=== PATIENT | male | born 1960 | race Caucasian/White ===

== ENCOUNTER 2025-05-31 02:36 | Day surgery (SDC) | payer SELFPAY ==
[2025-05-06 11:59] VITALS: BMI 29.8
--- OUTSIDE RECORDS SUMMARY | 2025-05-31 02:38 | XMS_ITS | Clinical Summary ---
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 Gender Identity Not on file Sexual Orientation Not on file Plan of Treatment Health Maintenance Due Date Last Done Comments Hepatitis C Virus (HCV) Screening 1961 TdaP Immunization 1961 Colonoscopy 2006 Colorectal Cancer Screening 2006 Cologuard 2011 Immunochemical Fecal Occult Blood 2011 Pneumococcal Immunization (5 0+ years) (1 of 1 - PCV) 2011 Zoster Immunization (1 of 2) 2011 PSA Discussion 2016 Influenza Immunization (#1) 2024 SARS-COV-2 Immunization ( season) 2024 03/15/2021, 02/19/2021 Respiratory Syncytial Virus (RSV) Immunization (Adult) (1 - 1-dose 75+ series) 2036 Hepatitis B Immunization Aged Out No longer eligible based on patient's age to complete this topic Meningococcal Immunization (ACWY) Aged Out No longer eligible b ased on patient's age to complete this topic Pneumococcal Immunization Combined Aged Out No longer eligible b ased on patient's age to complete this topic Rotavirus Immunization Aged Out No lo nger eligible based on patient's age to complete this topic
--- OUTSIDE RECORDS SUMMARY | 2025-05-31 02:38 | XMS_ITS | Clinical Summary ---
Author Organization [facility] Address [address] [place] [address] Care Team Providers Care Saloon Keeper Name Role Phone Den Sauer MD Primary Care Provider [phone] Allergies Active Allergy Reactions Criticality Noted Date Comments Morphine Vomiting Low 05/28/2023 Medications ALPRAZolam (XANAX) 0.5 mg tablet Take 1 tablet (0.5 mg total) by mouth nightly as needed for anxiety or sleep Active dextroamphetami ne-amphetamine (ADDERALL) 15 mg tablet Take 2 tablets (30 mg total) by mouth daily 3 Active finasteride (PROSCAR) 5 mg tablet Take 1 tablet (5 mg total) by mouth daily 3 Active lisinopriL (PRINIVIL,ZESTR IL) 40 mg tablet Take 1 tablet (40 mg total) by mouth daily Active loratadine 10 mg capsule Take 1 capsule by mouth daily Active NIFEdipine CC 30 mg 24 hr tablet Take 1 tablet (30 mg total) by mouth daily Active nebivoloL (BYSTOLIC) 10 mg tablet Take 1 tablet (10 mg total) by mouth daily 3 Active tadalafiL (CIALIS) 5 mg tablet Take 1 tablet (5 mg total) by mouth daily as needed for erectile dysfunction 2 Active tamsulosin (FLOMAX) 0.4 mg extended release capsule Take 1 capsule (0.4 mg total) by mouth nightly Active Active Problems Problem Noted Date Diagnosed Date Shortness of breath 05/29/2023 Assessment & Plan (05/29/2023 1:53 PM CDT): Patient states that he has been noticing shortness of breath over the past year (really post pandemic) that is exertional. He states that he generally feels a bit more out of shape than in the past, but notes he has been less active. He has noticed some chest tightness at times during these episodes with the most recent being yesterday. Also notable for nocturnal apnea as noticed by his . EKG sinus bradycardia, hs trop negative. D--Dimer negative as well. NM stress ordered in ED with plan for obs admit. Would recommend outpatient sleep study for patient, as well as echocardiogram on outpatient basis to evaluate. Hypertension, essential 05/29/2023 Assessment & Plan (05/29/2023 1:53 PM CDT): -Continue lisinopril. -Holding nebivolol and nifedipine. -Will resume on discharge. BPH (benign prostatic hyperplasia) 05/29/2023 Assessment & Plan (05/29/2023 3:11 AM CDT): -Continue finasteride and tamsulosin Anxiety 05/29/2023 Assessment & Plan (05/29/2023 3:11 AM CDT): -Continue alprazolam 0.5 mg qhs prn ADHD 05/29/2023 Assessment & Plan (05/29/2023 3:11 AM CDT): -Holding Adderall Hyperlipidemia 05/29/2023 Assessment & Plan (05/29/2023 1:54 PM CDT): Patient lipid panel notable for LDL of 130, total cholesterol of 202. Recommend nuance discussion with outpatient PCP regarding initiation of treatment (statin). 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 Gender Identity Not on file Sexual Orientation Not on file Obstetrics History Last Filed Vital Signs Vital Sign Reading Time Taken Comments Blood Pressure 156/98 05/29/2023 10:50 AM CDT Pulse 79 05/29/2023 10:50 AM CDT Temperature 36.7 C (98.1 F) 05/29/2023 7:40 AM CDT Respiratory Rate 14 05/29/2023 7:40 AM CDT Oxygen Saturation 99% 05/29/2023 7:40 AM CDT Inhaled Oxygen Concentration - - Weight 99.8 kg (220 lb) 05/29/2023 10:15 AM CDT Height 190.5 cm (6' 3) 05/29/2023 10:15 AM CDT Body Mass Index 27.5 05/29/2023 10:15 AM CDT Plan of Treatment Health Maintenance Due Date Last Done Comments Colon Cancer Screening-Colonoscopy 1961 Depression Screening 1961 Hepatitis C Screening 1961 Prostate Cancer Screening-PSA 1961 DTaP/Tdap/Td Vaccine (1 - Tdap) 1972 Hepatitis B Screening 1979 Regular Well Visit/Exam 18-64 1979 Zoster Vaccine (1 of 2) 2011 Covid-19 Vaccine ( season) 2024 07/18/2022, 12/04/2021, 03/15/2021, Additional history exists Influenza Vaccine (Season Ended) 2025 Pneumococcal vaccine <65 Aged Out No longer eligible based on patient's age to complete this topic Advance Directives For more information, please contact: [phone] * Full Code (Latest Code Status on File) Date Activated Date Inactivated Comments 05/29/2023 4:40 AM 05/29/2023 8:38 PM Care Teams Saloon Keeper Relationship Specialty Start Date End Date Den Sauer MD PCP - General 04/21/14
--- OUTSIDE RECORDS SUMMARY | 2025-05-31 02:38 | XMS_ITS | Encounter Summary ---
Author Organization [facility] Address [address] [place] [address] Care Team Providers Care Invasive Physician Name Role Phone Den Sauer MD Primary Care Provider [phone] Encounter Details Date Type Department Care Team (Late st Contact Info) Description 04/29/2022 Lab Requisition [facility] Derm[facility] [address] [place] [address] Den Sauer MD [address] [place] [address] Social History Tobacco Use Types Packs/Day Years Used Date Smoking Tobacco: Never Assessed Sex and Gender Information Value Date Recorded Sex Assigned at Not on file 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 Gender Identity Not on file Sexual Orientation Not on file documented as of this encounter Plan of Treatment Not on file documented as of this encounter Procedures Procedure Name Priority Date/Time Associated Diagnosis Comments DERMATOPATHOLOGY Routine 04/29/2022 12:0 0 AM CDT documented in this encounter Results * DERMATOPATHOLOGY (04/29/2022 12:00 AM CDT) Case Report Dermatopathology Report Case: [id number] Authorizing Provider: Den Sauer MD Collected: 04/29/2022 12:00 AM Ordering Location: [facility] Received: 04/29/2022 02:29 PM Pathologist: Kerrie Carter MD Specimens: A) - Skin, left breast B) - Skin, chest 2 4:56 PM T DERMATOPATHOLOGY LABORATORY Final Diagnosis Specimen A. SKIN, left breast: SEBORRHEIC KERATOSIS (L82.1) PRESENT AT MARGIN Specimen B. SKIN, chest: INTRADERMAL MELANOCYTIC NEVUS WITH CONGENITAL FEATURES (D22.9) PRESENT AT MARGIN 2 4:56 PM T DERMATOPATHOLOGY LABORATORY at 1656 CDT Clinical History A-B: Suspicious for malignancy. Check margins 2 4:56 PM T DERMATOPATHOLOGY LABORATORY Gross Description Specimen A: Received is one formalin filled container labeled with the patient's name and designated left breast. The specimen consists of a shave biopsy measuring 6x4x2 mm, inked. Jar 0. Specimen B: Received is one formalin filled container labeled with the patient's name and designated chest. The specimen consists of a shave biopsy measuring 4x4x3 mm, inked bisected. Jar 0. 2 4:56 PM T DERMATOPATHOLOGY LABORATORY Microscopic Description Specimen A. SKIN, left breast: Sections show an acanthotic lesion composed of relatively uniform keratinocytes. There is hyperkeratosis and pseudo horn cysts formation. This lesion is present at the margin of the specimen. Specimen B. SKIN, chest: There are nests of cytologically bland melanocytes within the dermis. Some of these melanocytes are concentrated around blood vessels and adnexal structures. This lesion is present at the margin of the specimen. 2 4:56 PM T DERMATOPATHOLOGY LABORATORY Disclaimer An external and internal positive and negative controls are appropriate for the histochemical, immunohistochemical and immunofluorescence stain(s) in this case (if any), except where stated explicitly. The performance characteristics of the stain(s) cited in this report were developed and its performance characteristic determined by the Dermatopathology Laboratory at [facility], directed by Dr. Tian Nava. These tests need not be, and therefore are not, approved by the [place] Food and Drug Administration. The tests are used for clinical purposes. Billing Codes Specimen Charges Stain Charges 01717 [id number] 1 1 2 4:56 PM T DERMATOPATHOLOGY LABORATORY Embedded Images 2 4:56 PM CDT DERMATOPATHOLOGY LABORATORY Pathology/Cytology TISSUE SPECIMEN FROM SKIN / Unknown 04/29/2022 04/29/2022 2:29 PM CDT Miscellaneous samples (specimen) TISSUE SPECIMEN FROM SKIN / Unknown 04/29/2022 04/29/2022 2:29 PM CDT Den Sauer MD LAB - PATHOLOGY/CYTOLOGY SUJATHAE JEFFERSON Final Result DERMATOPATHOLOGY LABORATORY [facility] - Department of Dermatology [facility] [address] [place] [address], [address] [phone] documented in this encounter Visit Diagnoses Not on filedocumented in this encounter Care Teams Invasive Physician Relationship Specialty Start Date End Date Den Sauer MD [address] [place] [address] PCP - General 05/08/22 documented as of this encounter
--- OUTSIDE RECORDS SUMMARY | 2025-05-31 02:38 | XMS_ITS | Clinical Summary ---
Author Organization [facility] Address [address] [place] [address] Care Team Providers Care Syrup Mixer Assistant Name Role Phone Den Sauer MD Primary Care Provider [phone] Source Comments [facility],non-owned Affiliates and Associated Physician Practices is amultiple site organization consisting of ambulatory clinics and hospital sitesin [place], [place], [place] and [place]. This disclosure is being madepursuant to the Care Everywhere program and may not contain all information available regarding this patient. Last updated 18.[facility] Allergies Active Allergy Reactions Criticality Noted Date Comments Morphine Vomiting 07/04/2022 Medications * Be aware that medications may not be up to date on this document. Alwaysverify current medications with the patient. amphetamine-dex troamphetamine (Adderall) 30 MG tablet Take 30 mg by mouth once daily 2 Active tadalafil (Cialis) 5 MG tablet TAKE 1 TABLET BY MOUTH ONCE DAILY FOR BENIGN PROSTATIC HYPERPLASIA 2 Active lisinopril (Prinivil; Zestril) 40 MG tablet Take 40 mg by mouth once daily 2 Active NIFEdipine CR 24hr (Adalat CC) 30 MG tablet Take 30 mg by mouth once daily 2 Active tamsulosin (Flomax) 0.4 MG capsule Take 0.4 mg by mouth at bedtime 2 Active Loratadine (Claritin) 10 MG Active ALPRAZolam (XANAX PO) Active Active Problems No known active problems Social History Tobacco Use Types Packs/Day Years Used Date Smoking Tobacco: Never Smokeless Tobacco: Never Tobacco Cessation:Counseling Given: No Sex and Gender Information Value Date Recorded Sex Assigned at Not on file 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 Gender Identity Not on file Sexual Orientation Not on file Plan of Treatment Health Maintenance Due Date Last Done Comments COLOGUARD (AGES 45-75) - COL ON CA SCREENING 1961 COLON MONITORING 1961 COLONOSCOPY - COLON CA SCREENING 1961 CT COLONOGRAPHY - COLON CA SCREENING 1961 Colorectal Cancer Screening 1961 FIT - COLON CA SCREENING 1961 FLEX SIG - COLON CA SCREENING 1961 LIPID TESTING 1961 HIV SCREENING 1976 HEPATITIS C SCREENING 12/02/1979 DTAP/TDAP/TD VACCINES (1 - Tdap) 1980 PNEUMOCOCCAL VACCINE 50+ (1 of 1 - PCV) 2011 ZOSTER VACCINE (1 of 2) 2011 COVID-19 VACCINE (1 - 2023-2 5 season) 2024 DEPRESSION SCREENING 11/24/2024 INFLUENZA VACCINE (Season Ended) 2025 Respiratory Syncytial Virus (RSV) Vaccine Pt: or over 60 yrs (1 - 1-dose 75+ series) 2036 HEPATITIS B VACCINE Aged Out No longe r eligible based on patient's age to complete this topic HIB VACCINE Aged Out No longer eligi ble based on patient's age to complete this topic HPV VACCINE Aged Out No longer eligi ble based on patient's age to complete this topic MENINGOCOCCAL (Group B) VACC INE SHARED DECISION-MAKING Aged Out No longer eligibl e based on patient's age to complete this topic MENINGOCOCCAL GROUPS A/C/Y/W VACCINE Aged Out No longer eligible b ased on patient's age to complete this topic Care Teams Syrup Mixer Assistant Relationship Specialty Start Date End Date Den Sauer MD [address] [place] [address] PCP - General 05/08/22
--- OUTSIDE RECORDS SUMMARY | 2025-05-31 02:38 | XMS_ITS | Referral Summary ---
Author Organization [facility] Address [address] [place] [address] Care Team Providers Care Arc Trimmer Name Role Phone Den Sauer MD Primary Care Provider [phone] Allergies Active Allergy Reactions Criticality Noted Date [...] outpatient PCP regarding initiation of treatment (statin). 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
[2025-05-31 07:11] VITALS: BP 172/84; PULSE 51; RESP 18; TEMP 36.3; O2SAT 100
--- NOTE | 2025-05-31 07:15 | WPDANESEPPF ---
Anes - Initial Pre Proc Eval Procedure: Operation Date: 05/31/25 08:30 Proposed Procedures p Screening Colonoscopy - Gabriel Alford DO Date/Time: 05/31/25 07:15 Surgeon: Gabriel Alford DO Pre Op Diagnosis: Neoplasm screening Patient Data Age: 64 Gender: M Height: 1.83 m Weight: 97.5 kg Last Vital Signs Temp 97.4 F L 05/31/25 07:11 Pulse 51 L 05/31/25 07:11 Resp 18 05/31/25 07:11 BP 172/84 H 05/31/25 07:11 Pulse Ox 100 05/31/25 07:11 O2 Del Method Room Air 05/31/25 07:11 Allergies Allergy/AdvReac Type Severity Reaction Status Date / Time metoprolol AdvReac Intermediate Dizziness Verified 05/31/25 07:09 morphine AdvReac Intermediate Nausea Verified 05/31/25 07:09 amlodipine (From [facility]) AdvReac Mild dizziness Verified 05/31/25 07:09 Home Medications ?Medication ?Instructions ?Recorded ?Confirmed ?Type tamsulosin 0.4 mg capsule 0.4 mg PO DAILY #30 caps 10/29/22 05/06/25 Rx finasteride 5 mg tablet 5 mg PO DAILY 06/05/23 05/06/25 History loratadine 10 mg tablet (Claritin) 10 mg PO DAILY 06/05/23 05/06/25 History nifedipine 30 mg tablet,extended 30 mg PO DAILY #90 tabs 12/01/24 05/06/25 Rx release tadalafil 5 mg tablet (Cialis) 5 mg PO DAILY bph #90 tabs 01/03/25 05/06/25 Rx nebivolol 10 mg tablet (Bystolic) 10 mg PO DAILY #90 tabs 03/07/25 05/31/25 Rx alprazolam 0.5 mg tablet (Xanax) 0.5 mg PO TID PRN anxiety 05/06/25 05/06/25 History dextroamphetamine-amphetamine 30 30 mg PO DAILY #30 tabs 05/24/25 Rx mg tablet (Adderall) lisinopril 40 mg tablet See Rx Instructions .Route 05/30/25 Rx .COMPLEX #90 tabs Patient hx anesthesia problems: none Family hx anesthesia problems: none Results Review: All pre-operative results and documents have been reviewed as part of the pre-operative evaluation. [facility] Past Medical History Medical History Joint pain Foot pain, right Tonsillectomy planned Overweight with body mass index (BMI) of 28 to 28.9 in adult Fatigue Apnea BMI 26.0-26.9,adult Adult BMI 27.0-27.9 kg/sq m Surgical History Surgical History History of appendectomy H/O prostate biopsy Family History Family History Mother Hypertension Sibling Hypertension Father scooter accident, fell and struck head. 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 HTN, anxiety/depression. Overall active w golfing, walked 25K steps in [place] recently, no cp or sob. Informed Consent: The patient's anesthetic plan and its attendant risks and benefits were discussed with the patient/family/POA. Questions were solicited and answers provided to the satisfaction of the patient/family/POA.
[2025-05-31] MEDS: LACTATED RINGERS 1,000 ML 150 ML IV CONT (07:23)
--- NOTE | 2025-05-31 08:32 | PM.IMHP ---
H&P: HPI History of Present Illness Date/Time: 05/31/25 08:32 Chief Complaint: Screening for colorectal cancer Narrative: this is a 64-year-old man who presents for colonoscopy. His last colonoscopy was 10 years ago. He has said some occasional discomfort in his rectum with bowel movements and he has noticed some blood when wiping. This has only happened a few times. He does have a history of an anal fissure that was treated about 10 years ago. He denies any family history of colon cancer. Review of Systems Review of Systems: All systems reviewed & are unremarkable except as noted in HPI and below Constitutional: Constitutional: Denies chills, Denies fever(s), Denies headache(s) and Denies weight loss Eyes: Eyes: Denies change in vision ENT: Denies dizziness, Denies headache(s), Denies neck mass and Denies throat swelling Cardiovascular: Cardiovascular: Denies chest pain, Denies lightheadedness and Denies dyspnea Respiratory: Respiratory: Denies cough, Denies dyspnea and Denies wheezing Gastrointestinal: Gastrointestinal: Denies abdominal pain, Denies change in bowel habits, Denies nausea and Denies vomiting Genitourinary: Genitourinary: Denies hematuria and Denies dysuria Musculoskeletal: Musculoskeletal: Reports as per HPI Integumentary/Breasts: Skin/Breast: Reports as per HPI Neurologic: Denies dizziness and Denies headache(s) Allergic/Immunologic: Allergic/Immunologic: Denies throat swelling and Denies wheezing PMF Past Medical History Medical History Joint pain Foot pain, right Tonsillectomy planned Overweight with body mass index (BMI) of 28 to 28.9 in adult Fatigue Apnea BMI 26.0-26.9,adult Adult BMI 27.0-27.9 kg/sq m Surgical History Surgical History History of appendectomy H/O prostate biopsy Family History Family History Mother Hypertension Sibling Hypertension Father scooter accident, fell and struck head. 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 Gender identity (if verbalized by the patient): Male Spiritual care concerns: No Meds Home Medications and Allergies Home Medications ?Medication ?Instructions ?Recorded ?Confirmed ?Type tamsulosin 0.4 mg capsule 0.4 mg PO DAILY #30 caps 10/29/22 05/06/25 Rx finasteride 5 mg tablet 5 mg PO DAILY 06/05/23 05/06/25 History loratadine 10 mg tablet (Claritin) 10 mg PO DAILY 06/05/23 05/06/25 History nifedipine 30 mg tablet,extended 30 mg PO DAILY #90 tabs 12/01/24 05/06/25 Rx release tadalafil 5 mg tablet (Cialis) 5 mg PO DAILY bph #90 tabs 01/03/25 05/06/25 Rx nebivolol 10 mg tablet (Bystolic) 10 mg PO DAILY #90 tabs 03/07/25 05/31/25 Rx alprazolam 0.5 mg tablet (Xanax) 0.5 mg PO TID PRN anxiety 05/06/25 05/06/25 History dextroamphetamine-amphetamine 30 30 mg PO DAILY #30 tabs 05/24/25 Rx mg tablet (Adderall) lisinopril 40 mg tablet See Rx Instructions .Route 05/30/25 Rx .COMPLEX #90 tabs Allergies Allergy/AdvReac Type Severity Reaction Status Date / Time metoprolol AdvReac Intermediate Dizziness Verified 05/31/25 07:09 morphine AdvReac Intermediate Nausea Verified 05/31/25 07:09 amlodipine (From Norvasc) AdvReac Mild dizziness Verified 05/31/25 07:09 Vital Signs Vital Signs - 24 hr 05/31/25 07:11 Temperature 97.4 F L Pulse Rate 51 L Respiratory Rate 18 Blood Pressure 172/84 H Pulse Oximetry 100 Oxygen Delivery Room Air Exam Const: General: no acute distress and alert Orientation/consciousness: patient oriented x3 HENMT: Head: normocephalic and atraumatic Ears: hearing grossly normal bilaterally Face/Nose/Sinus: Normal nares present Mouth: Yes Normal oral and palatal mucosa present Eyes: Periorbital: periorbital findings normal Sclera: sclerae normal EOM: EOMs intact bilaterally Neck: Neck: normal visual inspection, no lymphadenopathy and trachea midline Chest: Chest palpation & inspection: normal inspection of the chest Resp: Effort & Inspection: normal respiratory effort Auscultation: clear to auscultation bilaterally Cardio: Jugular venous distension: no JVD Rate: regular rate Rhythm: regular rhythm Heart sounds: S1 normal heart sound present and S2 normal heart sound present Peripheral pulses: Peripheral pulses 2+ throughout GI: Inspection: normal to inspection GI Palp: Yes Soft to palpation, No Tenderness to palpation present (GI), No Guarding due to palpation present (GI) and No Rebound tenderness present Percussion: Yes normal to percussion Auscultation: normal bowel sounds : General: Yes no CVA tenderness Back/Spine/Pelvis: Back: no CVA tenderness Neuro: General: patient oriented x3, no focal motor deficits and CN's II-XI intact bilaterally Cognition (Neuro): normal cognition Speech: normal speech Motor exam (neuro): 5/5 motor strength present throughout Extrem: General: capillary refill normal and no clubbing, cyanosis or edema Assessment and Plan Assessment and plan (1) Screening for colorectal cancer: Code(s): Z12.11 - Encounter for screening for malignant neoplasm of colon; Z12.12 - Encounter for screening for malignant neoplasm of rectum Status: Acute Assessment and Plan: I have recommended colonoscopy. I have discussed the procedure, risks, benefits, and alternatives. Questions were answered. Patient is agreeable to proceed.
--- NOTE | 2025-05-31 08:49 | S_PTH ---
PATIENT: Manish Allen LOC: [facility] U#:[id number] AGE/SX: 64/M ROOM: RE05/31/[address]: Gabriel Alford DO : 1960 BED: DIS: 05/31/2025 SPEC #: [id number] RECD: 05/31/25 10:48 STATUS: TATE REQ #: [id number] KALIA: 05/31/25 08:[address]: Gabriel Alford DEPT: [facility] Surgical RECD BY: Ursula Serrato ENTERED: 05/31/25 10:48 SP TYPE: Surgical OTHR DR: Den Sauer MD Tissues: A - Colon Polypectomy Procedures: Hematoxylin and Eosin Stain Gross and Microscopic Level 4
[2025-05-31 08:51] VITALS: BP 108/66; PULSE 51; RESP 13; O2SAT 93
[2025-05-31 09:01] VITALS: BP 133/82; PULSE 54; RESP 20; O2SAT 96
[2025-05-31 09:11] VITALS: BP 155/92; PULSE 48; RESP 20; O2SAT 94
== END 2025-05-31 09:29 | disposition home or self-care (01) ==
PROVIDERS: PCP Family Medicine; Visit Provider Surgery
PROC: 0DJD8ZZ Inspection of Lower Intestinal Tract, Via Natural or Artificial Opening Endoscopic (ICD-10-PCS; CPT 45378; principal; 2025-05-31 08:30)
DX: Z12.11 Encounter for screening for malignant neoplasm of colon (principal); K63.5 Polyp of colon; K57.30 Diverticulosis of large intestine without perforation or abscess without bleeding; I10 Essential (primary) hypertension; G47.30 Sleep apnea, unspecified; F41.8 Other specified anxiety disorders; Z87.19 Personal history of other diseases of the digestive system; Z82.49 Family history of ischemic heart disease and other diseases of the circulatory system
CPT/HCPCS: 45380; 88305; J2003; J2704; J7120